=== PATIENT | female | born 1995 | race Caucasian/White ===

== ENCOUNTER → 2016-08-07 | Outpatient (CLI) | payer OTHER ==
[2016-08-07 14:56] LABS: BASOPHILS # (AUTO) 0.02 10*3/UL; BASOPHILS % (AUTO) 0.2 % (0-1); EOSINOPHILS # (AUTO) 0.08 10*3/UL; EOSINOPHILS % (AUTO) 0.8 % (0-8); HEMATOCRIT 42.2 % (37.0-47.0); LYMPHOCYTES # (AUTO) 2.08 10*3/uL; MEAN CORPUSCULAR HEMOGLOBIN 28.1 PG (27-31); MEAN CORPUSCULAR HGB CONC 33.2 g/dL (33-37); MEAN CORPUSCULAR VOLUME 84.6 FL (81-99); MEAN PLATELET VOLUME 10.3 FL (7.4-12.2); MONOCYTES % (AUTO) 6.8 % (5-15); NEUTROPHILS # (AUTO) 7.42 10*3/UL; NEUTROPHILS % (AUTO) 71.5 % (50-80); RED BLOOD COUNT 4.99 10^6/uL (4.20-5.40)
[2016-08-07 15:00] LABS: PLATELET MORPHOLOGY COMMENT NORMAL MORPHOLOGY (NORM); RBC MORPHOLOGY COMMENT NORMAL MORPHOLOGY (NORM); WBC MORPHOLOGY COMMENT NORMAL MORPHOLOGY (NORM)
[2016-08-07 15:29] LABS: HIV ANTIBODY NEGATIVE (N); HIV-1 P24 ANTIGEN NEGATIVE (N)
[2016-08-09 13:37] LABS: HEP B SURFACE AG Negative (Negative)
== END ==
LOC: MOB LAB 13:48
PROVIDERS: ATTEND Obstetrics & Gynecology
DX: Z36 Encounter for antenatal screening of mother (principal); Z3A.19 19 weeks gestation of pregnancy
CPT/HCPCS: 36415; 80081; 86900; 86901; 87088

== ENCOUNTER → 2016-08-14 | Outpatient (CLI) | payer OTHER ==
--- NOTE | 2016-08-14 17:39 | DI ---
OBSTETRICAL ULTRASOUND, 08/14/2016 3:04 PM: Clinical History: Antepartum screening. Previous Exam: None at this facility for this . ADJUSTED DATE FROM EARLY OBUS: 03/23/2016. There is a single live IUP currently in transverse lie. Amnionic fluid content is normal. activ ity is observed as follows: Cardiac, respiratory, and extremity. The placenta is posterior corpus and Grade 1. heart rate is 134 beats/minute and regular. There is a 3 vessel cord. The RVOT, LVOT and 4 chamber heart view are normal. The aortic arch and descending aorta are normal. Views of the fe kalyan spine, face, and kidneys are unremarkable. BPD, HC, AC, and FL measurements are 51 mm, 193 mm, 17 4 mm, and 35 mm, respectively. These measurements correspond to EGA values of 21 weeks 4 days, 21 wee ks 4 days, 22 weeks 3 days and 21 weeks 1 day, respectively. Composite EGA is 21 weeks 5 days. The US EDC is 12/20/2016. EDC by adjusted LMP is 12/28/2016. Readin. Single live fetus with transverse lie and normal amniotic fluid content. Placenta is posterior co rpus and grade 1. 2. The composite EGA is 21 weeks 5 days with an ultrasound EDC of 12/20/2016. Based on the adjusted LM P of 03/23/2016, the EDC would be 12/28/2016. 3. Antepartum screening is normal.
== END ==
LOC: US 14:59
PROVIDERS: ATTEND Obstetrics & Gynecology
DX: Z36 Encounter for antenatal screening of mother (principal); Z3A.20 20 weeks gestation of pregnancy
CPT/HCPCS: 76805

== ENCOUNTER → 2016-10-02 | Outpatient (CLI) | payer OTHER ==
[2016-10-02 16:02] LABS: HEMATOCRIT 39.3 % (37.0-47.0); HEMOGLOBIN 12.7 g/dL (12.0-16.0); MEAN CORPUSCULAR HEMOGLOBIN 27.6 PG (27-31); MEAN CORPUSCULAR HGB CONC 32.3 g/dL (33-37); MEAN CORPUSCULAR VOLUME 85.4 FL (81-99); RED BLOOD COUNT 4.6 10^6/uL (4.20-5.40)
== END ==
LOC: LAB 14:38
PROVIDERS: ATTEND Obstetrics & Gynecology
DX: Z36 Encounter for antenatal screening of mother (principal); Z3A.27 27 weeks gestation of pregnancy
CPT/HCPCS: 36415; 82950; 85027; 87491; 87591

== ENCOUNTER → 2016-11-29 | Outpatient (CLI) | payer OTHER | LOC: MOB LAB 14:20 | PROVIDERS: ATTEND Obstetrics & Gynecology | DX: Z36 Encounter for antenatal screening of mother (principal); Z3A.35 35 weeks gestation of pregnancy | CPT/HCPCS: 87150 ==

== ENCOUNTER 2016-12-20 12:06 | Outpatient (CLI) | payer OTHER ==
[2016-12-20] MEDS ORDERED: NORMAL SALINE 10 ML SYRINGE FLUSH IVP PRN (13:59)
[2016-12-20 14:13] VITALS: RESP 18; TEMP 98
[2016-12-20 14:24] LABS: HEMOGLOBIN A1C 5.48 % (4.2-6.0)
--- NOTE | 2016-12-20 15:06 | DI ---
US OB , LIMITED,12/20/2016 12:11 PM: Clinical History: Excessive growth. Previous Exam: August 14, 2016 Findings: Multiple transabdominal grayscale and color Doppler sonographic images are obtained through the pelvi s demonstrating a normal appearing amniotic fluid index measuring 14.4 cm. Estimated gestational age was determined by a composite of biparietal diameter, head circumference, a bdominal circumference and femur length yielding an estimated gestational age by ultrasound of 39 wee ks zero days. The placenta is posterior. Detected Doppler heart tones measure 122 beats per minute. Estimated weight is 3370 g (47th percentile). Impression: Single live intrauterine gestation with size equal to dates.
--- NOTE | 2016-12-21 12:44 | PDOC(PROG) ---
Intake - - Reason for Visit/Chief Complaint: NST Admitted From: Physician Office - Estimated Due Date: 12/28/16 Gestational Age in Weeks and Days: 39 Weeks and 0 Days : 1 Living Children: 0 - Labs Blood Type and Rh: O+ Group B Strep: Positive Maternal - Vital Signs Last Taken Vital Signs: Vital Signs - Last Taken Temperature 98.0 F 12/20/16 13:57 Pulse Rate 95 12/20/16 13:57 Respiratory Rate 18 12/20/16 13:57 Blood Pressure 102/53 12/20/16 14:17 Pulse Ox 98 12/20/16 13:57 - Uterine Activity Uterine Contraction Monitor Mode: External Contraction Frequency(minutes): none noted pt denies - Vaginal Discharge Vaginal Bleeding Amount: None Vaginal Discharge Amount: None Monitoring - Uterine Activity Uterine Contraction Monitor Mode: External Contraction Frequency(minutes): none noted pt denies Results - Labs CBC and BMP: 12/20/16 14:14 Assessment and Plan - Patient Problems (1) Excessive weight gain during in third trimester Status: AcuteSupport Text: 46 lb weight gain in . 1 hour OGTT 131. Random blood sugar 150 today ( but shortly after eating lunch and cake), A1c normal 5.4%. Growth scan today done, 47%ile. Nl YG. Reactive NST but question of possible arrhythmia by nursing early in visit, will recheck on Sunday. Recommended decreased carbohydrate intake.
== END 2016-12-20 15:12 | disposition home or self-care (01) ==
LOC: OBOP 12:06 → US 12:06 → OBOP 15:12
PROVIDERS: ATTEND Student in an Organized Health Care Education/Training Program
DX: O99.213 Obesity complicating pregnancy, third trimester (principal); Z3A.38 38 weeks gestation of pregnancy
CPT/HCPCS: 59025; 76815; 82947; 83036; 99211

== ENCOUNTER 2016-12-22 10:29 | Outpatient (CLI) | payer OTHER ==
[2016-12-22] MEDS ORDERED: NORMAL SALINE 10 ML SYRINGE FLUSH IVP PRN (10:36)
[2016-12-22 10:45] VITALS: RESP 18; TEMP 98
--- NOTE | 2016-12-29 23:43 | PDOC(PROG) ---
Intake - - Reason for Visit/Chief Complaint: NST Admitted From: Home - Estimated Due Date: 12/28/16 Gestational Age in Weeks and Days: 40 Weeks and 1 Days : 1 Para: 0 Living Children: 0 - Labs Blood Type and Rh: O+ Maternal - Vital Signs Last Taken Vital Signs: Vital Signs - Last Taken Temperature 98.0 F 12/22/16 10:35 Pulse Rate 88 12/22/16 10:35 Respiratory Rate 18 12/22/16 10:35 Blood Pressure 131/71 12/22/16 10:35 Pulse Ox 98 12/22/16 10:35 - Uterine Activity Uterine Contraction Monitor Mode: External Contraction Frequency(minutes): x2 Contraction Duration (seconds): 90-120 Uterine Contraction Pattern: Irregular Uterine Tone Measurement Phase: soft - Vaginal Discharge Vaginal Bleeding Amount: None Vaginal Discharge Amount: Small Vaginal Discharge Description: Watery Vaginal Discharge Odor: Odorless Vaginal Itching: No Monitoring - Uterine Activity Uterine Contraction Monitor Mode: External Contraction Frequency(minutes): x2 Contraction Duration (seconds): 90-120 Uterine Contraction Pattern: Irregular Uterine Tone Measurement Phase: soft Results - Bedside Testing Bedside Urine Ketone: Negative Bedside Urine Leukocytes Esterase: Negative Bedside Urine Nitrite: Negative Bedside Urine Occult Blood: Negative Bedside Urine Protein: Negative Bedside Specific [place]: 1.005 Assessment and Plan - Patient Problems (1) Excessive weight gain during in third trimester Status: Acute (2) Size of fetus inconsistent with dates in third trimester Status: AcuteSupport Text: Patient with excessive weight gain in , size>dates - NST reactive today. Questionable arrhythmia heard but not traced. No tachycardia.
== END 2016-12-22 11:00 | disposition home or self-care (01) ==
LOC: OBOP 10:29
PROVIDERS: ATTEND Student in an Organized Health Care Education/Training Program
DX: O26.843 Uterine size-date discrepancy, third trimester (principal); O26.03 Excessive weight gain in pregnancy, third trimester; Z3A.39 39 weeks gestation of pregnancy
CPT/HCPCS: 59025; 81003; 99211

== ENCOUNTER 2016-12-25 10:09 | Outpatient (CLI) | payer OTHER ==
[2016-12-25 10:58] VITALS: RESP 16; TEMP 97.7
--- NOTE | 2016-12-29 23:45 | PDOC(PROG) ---
Intake - - Reason for Visit/Chief Complaint: NST Admitted From: Home - Estimated Due Date: 12/28/16 Gestational Age in Weeks and Days: 40 Weeks and 1 Days : 1 Para: 0 Term Births: 0 Births: 0 Number of Abortions (Spont./Elective): 0 Living Children: 0 - Labs Blood Type and Rh: O+ Group B Strep: Positive Hepatitis B Surface Antigen: Absent HIV: Negative Rubella Status: Immune VDRL/RPR: Absent Maternal - Vital Signs Last Taken Vital Signs: Vital Signs - Last Taken Temperature 97.7 F 12/25/16 10:37 Pulse Rate 95 12/25/16 10:37 Respiratory Rate 16 12/25/16 10:37 Blood Pressure 134/74 12/25/16 10:37 Pulse Ox 97 12/25/16 10:37 - Uterine Activity Uterine Contraction Monitor Mode: External Contraction Frequency(minutes): irritability Contraction Duration (seconds): 20-40 Uterine Contraction Pattern: Irregular Uterine Tone Measurement Phase: Resting - Vaginal Discharge Vaginal Bleeding Amount: None Vaginal Discharge Amount: Moderate Vaginal Discharge Description: Watery Vaginal Discharge Color: White Vaginal Discharge Odor: Odorless Monitoring - Uterine Activity Uterine Contraction Monitor Mode: External Contraction Frequency(minutes): irritability Contraction Duration (seconds): 20-40 Uterine Contraction Pattern: Irregular Uterine Tone Measurement Phase: Resting Results - Bedside Testing Bedside Urine Ketone: Trace Bedside Urine Leukocytes Esterase: Negative Bedside Urine Nitrite: Negative Bedside Urine Occult Blood: Negative Bedside Urine Protein: Negative Bedside Specific [place]: 1.010 Assessment and Plan - Patient Problems (1) Excessive weight gain during in third trimester Status: Acute (2) Size of fetus inconsistent with dates in third trimester Status: AcuteSupport Text: REactive NST. F?u in clinic as previously scheduled.
== END 2016-12-25 11:40 | disposition home or self-care (01) ==
LOC: OBOP 10:09
PROVIDERS: ATTEND Student in an Organized Health Care Education/Training Program
DX: O26.03 Excessive weight gain in pregnancy, third trimester (principal); O26.843 Uterine size-date discrepancy, third trimester; Z3A.39 39 weeks gestation of pregnancy
CPT/HCPCS: 59025; 81003; 99211

== ENCOUNTER 2016-12-29 11:20 | Outpatient (CLI) | payer OTHER ==
[2016-12-29] MEDS ORDERED: NORMAL SALINE 10 ML SYRINGE FLUSH IVP PRN (11:29)
[2016-12-29 11:32] VITALS: RESP 16; TEMP 98.3
--- NOTE | 2017-01-01 22:56 | PDOC(PROG) ---
Intake - - Reason for Visit/Chief Complaint: Cramping Admitted From: Home - Estimated Due Date: 12/28/16 Gestational Age in Weeks and Days: 40 Weeks and 4 Days : 1 Para: 0 Term Births: 0 Births: 0 Number of Abortions (Spont./Elective): 0 Living Children: 0 - Labs Blood Type and Rh: O+ Group B Strep: Positive Hepatitis B Surface Antigen: Absent HIV: Negative Rubella Status: Immune VDRL/RPR: Absent Maternal - Vital Signs Last Taken Vital Signs: Vital Signs - Last Taken Temperature 98.3 F 12/29/16 11:29 Pulse Rate 87 12/29/16 11:29 Respiratory Rate 16 12/29/16 11:29 Blood Pressure 108/88 12/29/16 11:29 Pulse Ox 98 12/29/16 11:29 - Uterine Activity Uterine Contraction Monitor Mode: External Contraction Frequency(minutes): irritibility with irregular UC Contraction Duration (seconds): 60 Uterine Contraction Pattern: Irregular Uterine Tone Measurement Phase: Resting Uterine Contraction Intensity: Mild - Cervical Exam Cervical Dilation (cm): 1 Cervical Effacement Percentage: 25 Station: -3 Exam Performed By: [place] - Vaginal Discharge Vaginal Bleeding Amount: None Vaginal Discharge Amount: None Monitoring - Uterine Activity Uterine Contraction Monitor Mode: External Contraction Frequency(minutes): irritibility with irregular UC Contraction Duration (seconds): 60 Uterine Contraction Pattern: Irregular Uterine Tone Measurement Phase: Resting Uterine Contraction Intensity: Mild Results - Bedside Testing Bedside Urine Ketone: Negative Bedside Urine Leukocytes Esterase: Negative Bedside Urine Nitrite: Negative Bedside Urine Occult Blood: Negative Bedside Urine Protein: Negative Bedside Specific [place]: 1.005 Assessment and Plan - Assessment / Plan Additional Assessment/Plan Details: No progress into active labor. Reassuring maternal and evaluation. DC to home in good condition. - Time Time Spent With Patient: Less Than 15 Minutes
== END 2016-12-29 14:20 | disposition home or self-care (01) ==
LOC: OBOP 11:20
PROVIDERS: ATTEND Obstetrics & Gynecology
DX: O26.893 Other specified pregnancy related conditions, third trimester (principal); R25.2 Cramp and spasm; Z3A.40 40 weeks gestation of pregnancy
CPT/HCPCS: 59025; 81003; 99211

== ENCOUNTER 2017-01-03 14:49 | Inpatient (IN) ==
[2017-01-03] MEDS ORDERED: NORMAL SALINE 10 ML SYRINGE FLUSH IVP PRN ×4 (15:06→22:11)
[2017-01-03] MEDS ORDERED: LIDOCAINE W/ SODIUM BICARB 0.5 ML SYR SUBD PRN (18:20)
[2017-01-03] MEDS ORDERED: Metoclopramide Inj 10 MG/2 ML VIAL IV PRN (18:20)
[2017-01-03] MEDS ORDERED: Nalbuphine Inj 20 MG/ML Ampule IVP PRN ×3 (18:20→22:11)
[2017-01-03] MEDS ORDERED: diphenhydrAMINE 50 MG/1 ML VIAL IVP PRN (18:20)
[2017-01-03] MEDS ORDERED: CITRIC ACID/SODIUM CITRATE 30 ML CUP PO PRN (18:20)
[2017-01-03] MEDS ORDERED: CALCIUM CARBONATE 500 MG (TUMS) CHEWABLE TABLET PO PRN ×2 (18:20→22:11)
[2017-01-03] MEDS ORDERED: BUTORPHANOL TARTRATE 2 MG/1 ML VIAL IVP PRN (18:20)
[2017-01-03] MEDS ORDERED: CefOXitin Inj 2 GM in Sodium Chloride 0.9% 100 ML IV PRN (18:20)
[2017-01-03] MEDS ORDERED: ePHEDrine Inj 5 MG in Normal Saline Flush 1 ML IVP PRN (18:20)
[2017-01-03] MEDS ORDERED: METHYLERGONOVINE MALEATE 0.2 MG/1 ML VIAL IM PRN ×2 (18:20→22:11)
[2017-01-03] MEDS ORDERED: Famotidine Inj 20 MG in Normal Saline Flush 10 ML IVP PRN ×5 (18:20→22:11)
[2017-01-03] MEDS ORDERED: ONDANSETRON 4 MG/2 ML VIAL IVP PRN ×2 (18:20→22:11)
[2017-01-03] MEDS ORDERED: Carboprost Inj 250 MCG/ML AMP IM PRN ×2 (18:20→22:11)
[2017-01-03] MEDS ORDERED: TERBUTALINE SULFATE 1 MG/1 ML SDV SUBCUT PRN (18:20)
[2017-01-03] MEDS ORDERED: OXYTOCIN 10 UNIT/1 ML IM PRN (18:20)
[2017-01-03] MEDS ORDERED: Phenylephrine Inj 50 MCG in Normal Saline Flush 0.5 ML IVP PRN (18:20)
[2017-01-03] MEDS ORDERED: Lidocaine 1% 10 MG/ML - 20 ML VIAL SUBCUT PRN (18:20)
[2017-01-03] MEDS ORDERED: Naloxone Inj 0.01 MG in Normal Saline Flush 1 ML IVP PRN (18:20)
[2017-01-03] MEDS ORDERED: NALOXONE 0.4 MG/1 ML VIAL IVP PRN (18:20)
[2017-01-03] MEDS ORDERED: fentaNYL Inj 100 MCG/2 ML VIAL IV PRN (18:20)
[2017-01-03] MEDS ORDERED: MISOPROSTOL 200 MCG TABLET RECTAL PRN (18:20)
[2017-01-03] MEDS ORDERED: Oxytocin 20 Units + LR 1,000 ML IV SCH ×2 (18:30→22:11)
[2017-01-03] MEDS ORDERED: Lactated Ringers-OB Dept 1,000 ML PRIMARY IV SCH (18:30)
[2017-01-03 18:37] LABS: Hematocrit [HCT] 43.7 % (37.0-47.0); Hemoglobin [HGB] 14.6 g/dL (12.0-16.0); MEAN CORPUSCULAR HEMOGLOBIN 27.5 PG (27-31); MEAN CORPUSCULAR HGB CONC 33.4 g/dL (33-37); MEAN CORPUSCULAR VOLUME 82.3 FL (81-99); MEAN PLATELET VOLUME 10.6 FL (7.4-12.2); RED BLOOD COUNT 5.31 10^6/uL (4.20-5.40)
--- NOTE | 2017-01-03 18:42 | DI ---
LIMITED OBSTETRICAL ULTRASOUND, 01/03/2017 3:10 PM Clinical History: Post dates. Size greater than dates. Previous Exam: 12/20/2016. ADJUSTED LMP: 03/23/2016. There is a single live IUP currently in vertex presentation. Amnionic fluid content is normal. Amniot ic fluid index is 15.8 cm which is increased for this stage of . activity is observed as follows: cardiac, extremity, and respiratory. The placenta is not visualized. heart rate is 120 beats/minute and regular. BPD, HC, AC, and FL measurements are 100 mm, 362 mm, 374 mm, and 82 mm, respectively. These measurements correspond to EGA values of 41 weeks one day, not applicable, 41 we eks 3 days, and 42 weeks 0 days, respectively. Composite EGA is 41 weeks 4 days. The US EDC is 017. EDC by adjusted LMP is 12/28/2016. Estimated weight is 4448 g, plus or minus 650 g. Readin. Single live fetus with vertex presentation and increased amniotic fluid content. Amniotic fluid i ndex is 15.8 cm. 2. The composite EGA is 41 weeks 4 days with an ultrasound EDC of 12/23/2016. 3. Estimated weight is 4448 g, plus or minus 650 g.
[2017-01-03] MEDS ORDERED: FAMOTIDINE 20 MG/2 ML VIAL IVP ONE (18:54)
[2017-01-03] MEDS ORDERED: Sodium Chloride 0.9% 100 ML IV ONE (18:58)
[2017-01-03] MEDS ORDERED: MORPHINE SULFATE/PF 10 MG/10 ML AMPULE ONE (18:59)
--- NOTE | 2017-01-03 19:10 | OB.PROGRES ---
Interval History: This 21 yo at 40 6/7 weeks EGA by 8 week US came over from a clinic visit today for evaluation for induction for post-dates. Her cervix was unreachable and US EFW is 9 pounds 13 oz. Options were discussed the patient and she was recommended for elective primary section for macrosomia and contracted pelvis. She agreed with this recommendation. Plan primary as soon as the OR is available. Objective - Labs CBC and BMP: 01/03/17 18:32 Labs - Last 24 Hours: Laboratory Results 01/03/17 Range/Units 18:32 WBC 10.57 (4.8-10.8) 10^3/uL RBC 5.31 (4.20-5.40) 10^6/uL Hgb 14.6 (12.0-16.0) g/dL Hct 43.7 (37.0-47.0) % MCV 82.3 (81-99) FL MCH 27.5 (27-31) PG MCHC 33.4 (33-37) g/dL RDW Std Deviation 46.6 (39-50) fL RDW Coeff of Denisse 15.4 H (11.5-14.5) % Plt Count 198 (140-350) 10*3/uL MPV 10.6 (7.4-12.2) FL - Vital Signs Last Taken Vital Signs: Vital Signs - Last Taken Temperature 97.9 F 01/03/17 18:40 Pulse Rate 85 01/03/17 18:40 Respiratory Rate 18 01/03/17 18:40 Blood Pressure 137/76 01/03/17 15:16 Pulse Ox 97 01/03/17 18:40
[2017-01-03] MEDS ORDERED: Lactated Ringers 1,000 ML PRIMARY IV ONE (19:17)
[2017-01-03] MEDS ORDERED: ePHEDrine Inj 50 MG/ML AMP ONE (20:14)
[2017-01-03] MEDS ORDERED: KETOROLAC 30 MG/1 ML VIAL ONE (20:14)
--- NOTE | 2017-01-03 20:50 | OB.OP.NOTE ---
Operative Report Surgeon: Esther Tennis Ball Coverer Hand: Hair Hernandez MD Anesthesia Type: Regional Anesthesia Provider: Carloz Cota CRNA Surgery Date: 01/03/17 Preoperative Diagnosis: 40 6/7 week, Post Dates with Macrosomia Postoperative Diagnosis: Same Procedure: Elective Primary LTCS Estimated Blood Loss (mL): 700 Fluids: 2400 ml Complications: None Findings at Surgery: Viable male infant, Apgars 9/10, Weight 9 pounds 14 oz. in LOT position outside of the pelvis. Normal uterus, tubes and ovaries. Indications for the Procedure: Post Dates with macrosomia and relatively contracted pelvis on SVE. Pt. offered and accepted elective delivery. Description of Procedure: See dictated operative report. Plan: Routine Post Op care.
[2017-01-03] MEDS ORDERED: Prochlorperazine Edisylate Inj 10mg/2ml vial IVP PRN (21:01)
[2017-01-03] MEDS ORDERED: fentaNYL Inj 100 MCG/2 ML VIAL IVP PRN (21:01)
--- NOTE | 2017-01-03 21:01 | CRNA.PROCE ---
Central Neuraxis Block Placemt - - Safety Measures: Time Out Taken, Site Verified - - Type of Block: Subarachnoid Reason for Block: Surgical Moniters Used During Block: EKG, SPO2, NIBP Skin Prep Used: ChloroPrep Draped: No Skin Infiltration - Enter Amount Used in Comment Field: 1% Xylocaine (mL): Yes ( skin wheal) Spinal Needle Used: 25 Keira 80 mm Local Anesthetic - Enter Amount Used in Comment Field: 0.75 % Bupivacaine with Dextrose (ml): Yes (2ml) Additive Used - Enter Amount Used in Comment Field: Preservative Free Morphine ( mg): Yes (.15mg) Bioclusive Dressing Applied: No - - Additional Details: pos csf, pos birefringence
[2017-01-03] MEDS ORDERED: Naloxone Inj 0.01 MG, Sodium Chloride 0.9% vial 1 ML IVP PRN ×4 (21:05→22:11)
[2017-01-03] MEDS ORDERED: Lactated Ringers 1,000 ML PRIMARY IV SCH (21:15)
[2017-01-03] MEDS ORDERED: diphenhydrAMINE 25 MG CAPSULE PO PRN (22:11)
[2017-01-03] MEDS ORDERED: Methylergonovine Tab 0.2 MG TAB PO PRN (22:11)
[2017-01-03] MEDS ORDERED: MISOPROSTOL 200 MCG TABLET RECTAL ONE (22:11)
[2017-01-03] MEDS ORDERED: OXYTOCIN 10 UNIT/1 ML IM ONE (22:11)
[2017-01-03] MEDS ORDERED: LANOLIN HPA 40 GM TUBE TOPICAL PRN (22:11)
[2017-01-03] MEDS ORDERED: DIPH,PERTUSS,TET(ADACEL) VAC/PF 0.5 ML (Tdap) IM ONE (22:11)
[2017-01-03] MEDS ORDERED: diphenhydrAMINE 50 MG/1 ML VIAL IV PRN (22:11)
[2017-01-04] MEDS: D5-LR 1,000 ML PRIMARY IV SCH ×2 (02:18→12:49)
[2017-01-04] MEDS: KETOROLAC 15 MG/1 ML VIAL IVP PRN ×4 (02:27→21:07)
[2017-01-04 04:46] LABS: Hematocrit [HCT] 39.9 % (37.0-47.0); Hemoglobin [HGB] 12.9 g/dL (12.0-16.0); MEAN CORPUSCULAR HEMOGLOBIN 27.1 PG (27-31); MEAN CORPUSCULAR HGB CONC 32.3 g/dL (33-37); MEAN CORPUSCULAR VOLUME 83.8 FL (81-99); MEAN PLATELET VOLUME 10.6 FL (7.4-12.2); RED BLOOD COUNT 4.76 10^6/uL (4.20-5.40)
--- NOTE | 2017-01-04 07:47 | OB.PROGRES ---
Subjective Post Op Day: 1 Pain Management: PO [place] Catheter: Yes Flatus: No Diet: Regular Feeding Method: Exculsively Ambulating: Yes Concerns / Additional Information: Manav is resting comfortably this morning. She does not complain of pain. Assesstment / Plan Assessment / Plan: POD 1, doing well. DC soto and ambulate as much as possible.
[2017-01-04] MEDS: Prenatal Multivitamin Tab 1 TAB TAB PO SCH (08:48)
[2017-01-04] MEDS: Senna/Docusate Tab 1 TAB TAB PO SCH ×2 (08:48→21:07)
--- NOTE | 2017-01-04 15:47 | CRNA.PROGR ---
Anesthesia Note Anesthesia Progress Note: Post OP Anesthesia Note Pt is sitting up in bed nursing her . She has been up ambulating, tolerating a regular diet, and pain is well under control. current VS are stable. Vital Signs - Last Taken Temperature 98.2 F 01/04/17 13:37 Pulse Rate 89 01/04/17 13:37 Respiratory Rate 18 01/04/17 13:37 Blood Pressure 112/69 01/04/17 13:37 Pulse Ox 92 01/04/17 13:37
[2017-01-04] MEDS: oxyCODONE-ACETAMINOPHEN 5-325 TAB PO PRN (22:55)
[2017-01-05] MEDS: IBUPROFEN 800 MG TABLET PO PRN ×2 (05:20→17:11)
[2017-01-05] MEDS: SIMETHICONE 80 MG TABLET PO PRN ×2 (06:52→15:14)
[2017-01-05] MEDS: oxyCODONE-ACETAMINOPHEN 5-325 TAB PO PRN ×4 (06:52→20:43)
--- NOTE | 2017-01-05 08:35 | OB.PROGRES ---
Subjective Post Op Day: 2 Pain Management: PO [place] Catheter: No Flatus: Yes Diet: Regular Feeding Method: Exculsively Ambulating: Yes Concerns / Additional Information: Doing well today. No complaints. Good pain control. Assesstment / Plan Assessment / Plan: POD 2, doing well. CCM.
[2017-01-05] MEDS: Prenatal Multivitamin Tab 1 TAB TAB PO SCH (09:41)
[2017-01-05] MEDS: Senna/Docusate Tab 1 TAB TAB PO SCH ×2 (09:42→22:46)
[2017-01-05] MEDS ORDERED: BISACODYL 10 MG SUPPOSITORY RECTAL ONE (14:20)
[2017-01-06] MEDS: IBUPROFEN 800 MG TABLET PO PRN ×2 (00:23→08:29)
[2017-01-06] MEDS: SIMETHICONE 80 MG TABLET PO PRN (04:36)
[2017-01-06] MEDS: oxyCODONE-ACETAMINOPHEN 5-325 TAB PO PRN ×2 (07:42→10:06)
[2017-01-06] MEDS: Senna/Docusate Tab 1 TAB TAB PO SCH (08:29)
[2017-01-06] MEDS: Prenatal Multivitamin Tab 1 TAB TAB PO SCH (08:29)
--- NOTE | 2017-01-06 09:31 | DCSUMMARY ---
Hospitalization Summary Admit Date: 01/03/17 Discharge Date: 01/06/17 Primary Diagnosis:: Post Dates , Delivered Secondary Diagnosis:: Macrosomia Primary Surgery and Date: Elective Primary LTCS 01/03/17 Delivery Type: Hospital Course: Uncomplicated section and post operative course. Discharge to home on POD 3 in good condition. / Postop Complications: None Complications: None Exam - Vitals Vital Signs: Vital Signs Temperature 98.3 F Temperature Source Oral Pulse Rate [Pulse Oximeter] 88 Pulse Rate 101 Respiratory Rate 18 Blood Pressure [Left Arm] 129/51 Blood Pressure [Right Arm] 132/58 Blood Pressure 124/66 Pulse Ox 96 Oxygen Flow Rate 1 Oxygen Delivery Method Room Air Height 5 ft 5 in Weight 290 lb 12.8 oz
[2017-01-06 09:50] VITALS: RESP 16; TEMP 98.6
== END 2017-01-06 15:30 | disposition home or self-care (01) | DRG 766 ==
LOC: OBOP 14:49 → OBIP 18:00
PROVIDERS: ADMIT Obstetrics & Gynecology; ATTEND Obstetrics & Gynecology